=== PATIENT | female | born 1990 ===

== ENCOUNTER 2018-02-06 23:58 | Emergency (ER) | payer OTHER ==
[2018-02-07 00:12] VITALS: RESP 16; O2SAT 97
[2018-02-07] MEDS ORDERED: Tetanus/Diphtheria Toxoids 0.5 ml Syringe IM ONE ×2 (00:18→00:25)
--- NOTE | 2018-02-07 01:24 | C.PDOC ---
History Of Present Illness 28yo female, presents to ED for evaluation of a head injury sustained at 1930 last night. 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 She denies any loss of consciousness but does report a headache, nausea and dizziness. She denies any vision changes, or vomiting. She has no other medical complaints. PMD: Non [facility] Provider - HPI Time Seen by Provider: 02/07/18 00:14 Chief Complaint (Nursing): Trauma History Per: Patient History/Exam Limitations: no limitations Onset/Duration Of Symptoms: Hrs Injury Occurred (Timing): Hours Ago: (5) Location Of Injury: Posterior: Head Associated Symptoms: Dizziness Additional History Per: Patient Past Medical History Reviewed: Historical Data, Nursing Documentation, Vital Signs Vital Signs: Last Vital Signs Temp 97.7 F 02/07/18 02:57 Pulse 69 02/07/18 02:57 Resp 16 02/07/18 02:57 BP 108/63 02/07/18 02:57 Pulse Ox 97 02/07/18 03:01 - Medical History PMH: No Chronic Diseases Surgical History: No Surg Hx Family History: States: No Known Family Hx - Social History Hx Alcohol Use: Yes Hx Substance Use: No Review Of Systems Except As Marked, All Systems Reviewed And Found Negative. Constitutional: Negative for: Fever, Chills Eyes: Negative for: Vision Change Gastrointestinal: Positive for: Nausea. Negative for: Vomiting Neurological: Positive for: Headache, Dizziness. Negative for: Other (loss of consciousness) Physical Exam - Physical Exam Appears: Non-toxic, No Acute Distress Skin: Normal Color, Warm, Dry Head: Normacephalic, No Tenderness, No Swelling, Abrasion (0.5cm deep abrasion to posterior scalp with dried blood. no active bleeding.), No Laceration Eye(s): bilateral: Normal Inspection, PERRL, EOMI Ear(s): Bilateral: Normal Nose: Normal Oral Mucosa: Moist Throat: Normal Neck: Normal ROM, Supple Chest: Symmetrical Cardiovascular: Rhythm Regular Respiratory: Normal Breath Sounds Extremity: Normal ROM Neurological/Psych: Oriented x3, Normal Speech, Normal Cognition, Normal Motor, Normal Sensation Gait: Steady ED Course And Treatment O2 Sat by Pulse Oximetry: 97 (RA) Pulse Ox Interpretation: Normal - CT Scan/US CT Head w/o contrast Other Rad Studies (CT/US): Read By Radiologist, Radiology Report Reviewed CT/US Interpretation: EXAM: CT Head Without Intravenous Contrast. CLINICAL HISTORY: 28 years old, female; Pain; Headache; Additional info: Head injury. TECHNIQUE: Axial computed tomography images of the head/brain without intravenous contrast. All CT scans at. this facility use one or more dose reduction techniques, viz.: automated exposure control; ma/kV. adjustment per patient size (including targeted exams where dose is matched to indication; i.e. head);. or iterative reconstruction technique. COMPARISON: No relevant prior studies available. FINDINGS: Brain: No intracranial hemorrhage. No mass. No edema. Ventricles: No hydrocephalus. Bones/joints: No acute fracture. Soft tissues: Unremarkable. Sinuses: No acute sinusitis. Mastoid air cells: No mastoid effusion. Orbits: Unremarkable as visualized. IMPRESSION : 1. No intracranial hemorrhage. Progress Note: CT head ordered. TDAP booster and Tylneol 650mg PO given. On re -evaluation, patient reports marked improvement. CT results reviewed and discussed with patient that there are no acute findings. Patient instructed to follow up with PMD in 2-3 days and to return to ER if symptoms worsen or new symptoms arise. Stable for discharge home. Disposition - Disposition Disposition: HOME/ ROUTINE Disposition Time: 03:02 Condition: STABLE Additional Instructions: Follow up with PMD within 1-2 days. Return to ED if feel worse. Instructions: Minor Head Injury (DC) Forms: [facility] (Spanish), Work Excuse - Clinical Impression Clinical Impression: Minor head injury - PA / [employer]AG [employer] / Resident Statement MD/DO has reviewed & agrees with the documentation as recorded. - Scribe Statement The provider has reviewed the documentation as recorded by the Scribe (Desirae Soares) Provider Attestation: All medical record entries made by the Katherineibe were at my direction and personally dictated by me. I have reviewed the chart and agree that the record accurately reflects my personal performance of the history, physical exam, medical decision making, and the department course for this patient. I have also personally directed, reviewed, and agree with the discharge instructions and disposition.
--- NOTE | 2018-02-07 02:18 | CT ---
EXAM: CT Head Without Intravenous Contrast CLINICAL HISTORY: 28 years old, female; Pain; Headache; Additional info: Head injury TECHNIQUE: Axial computed tomography images of the head/brain without intravenous contrast. All CT scans at this facility use one or more dose reduction techniques, viz.: automated exposure control; ma/kV adjustment per patient size (including targeted exams where dose is matched to indication; i.e. head); or iterative reconstruction technique. COMPARISON: No relevant prior studies available. FINDINGS: Brain: No intracranial hemorrhage. No mass. No edema. Ventricles: No hydrocephalus. Bones/joints: No acute fracture. Soft tissues: Unremarkable. Sinuses: No acute sinusitis. Mastoid air cells: No mastoid effusion. Orbits: Unremarkable as visualized. IMPRESSION: 1. No intracranial hemorrhage.
[2018-02-07 02:57] VITALS: BP 108/63; PULSE 69; TEMP 97.7
== END 2018-02-07 03:13 | disposition home or self-care (01) ==
LOC: C.ER 23:58
DX: S00.01XA Abrasion of scalp, initial encounter (principal); W22.8XXA Striking against or struck by other objects, initial encounter; Y92.89 Other specified places as the place of occurrence of the external cause; Y99.0 Civilian activity done for income or pay